=== PATIENT | male | born 1995 | race Hispanic/Latino ===

== ENCOUNTER 2017-05-27 19:45 | Emergency (ER) | payer OTHER ==
[~2017-05-27] VITALS: Ht 165.1 cm; Wt 87.3 kg
[2017-05-27] MEDS ORDERED: IBUPROFEN 600 MG TAB PO ONE (21:30)
[2017-05-27] MEDS ORDERED: IBUP-1022 PO (22:40)
[2017-05-27 22:57] VITALS: BP 138/61
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
== END 2017-05-27 23:17 | disposition home or self-care (01) ==
LOC: M ED 19:45
DX: S80.02XA Contusion of left knee, initial encounter (principal); S69.92XA Unspecified injury of left wrist, hand and finger(s), initial encounter; V43.52XA Car driver injured in collision with other type car in traffic accident, initial encounter; Y92.410 Unspecified street and highway as the place of occurrence of the external cause; Y93.9 Activity, unspecified; Y99.9 Unspecified external cause status